=== PATIENT | male | born 1990 | race Caucasian/White ===

== ENCOUNTER 2017-04-10 15:30 | Emergency (ER) | payer BC, SELFPAY ==
[~2017-04-10] VITALS: Ht 172.7 cm; Wt 95.5 kg
[2017-04-10 15:31] VITALS: BP 138/85
[2017-04-10] MEDS ORDERED: ACET1TAB17 PO (15:47)
[2017-04-10] MEDS ORDERED: IBUP-1114 PO (15:47)
[2017-04-10] MEDS ORDERED: LIDOCAINE 2% MDV 20 ML VIAL SC ONE (16:30)
--- NOTE | 2017-04-10 16:48 | REP ---
RIGHT HAND, FOUR VIEWS: HISTORY: Trauma. There is a nondisplaced fracture of the 5th metacarpal. There is no dislocation. The joint spaces are normal in appearance. IMPRESSION:Nondisplaced fracture of the 5th metacarpal. Signed by Los Benson MD 04/10/2017 04:51 P
[2017-04-10] MEDS ORDERED: PERCOCET 5MG/325MG TAB PO ONE (17:30)
[2017-04-10] MEDS ORDERED: NORCOTAB PO (18:06)
--- NOTE | 2017-04-11 06:06 | REP ---
RIGHT HAND: CLINICAL: Postreduction. TECHNIQUE: Single oblique view of the right hand. COMPARISON: 04/10/2017 at 4 p.m. FINDINGS: A mildly angulated boxer's fracture of the fifth digit metacarpal bone with overlying soft tissue swelling is again appreciated essentially unchanged. IMPRESSION: Angulated boxer's fracture of the fifth metacarpal bone. Signed by Dc Barnett MD 04/12/2017 08:31 A
--- NOTE | 2017-04-11 06:08 | REP ---
RIGHT HAND: CLINICAL: Status post reduction. TECHNIQUE: AP and lateral views of the right hand. FINDINGS: Angulated boxer's fracture of the fifth metacarpal bone with overlying soft tissue swelling is again appreciated and essentially unchanged. The remainder of the examination appears to be within normal limits. IMPRESSION: Angulated boxer's fracture of the fifth metacarpal bone with overlying soft tissue swelling. Signed by Dc Barnett MD 04/12/2017 08:32 A
== END 2017-04-10 18:56 | disposition home or self-care (01) ==
LOC: M ED 15:30
DX: S62.346A Nondisplaced fracture of base of fifth metacarpal bone, right hand, initial encounter for closed fracture (principal); W22.09XA Striking against other stationary object, initial encounter; Y92.098 Other place in other non-institutional residence as the place of occurrence of the external cause; Y93.89 Activity, other specified; Y99.8 Other external cause status; Z88.0 Allergy status to penicillin

== ENCOUNTER → 2019-10-12 | Outpatient (REF) | payer BC ==
[~2019-10-12] MED LIST: ACET1TAB55 PO; HYDR-3715 PO; IBUP-1114 PO
[2019-10-12 14:15] LABS: ALBUMIN 4.3 GM/DL (3.2-5.2); ALT/SGPT 45 U/L (12-78); BILIRUBIN,TOTAL 0.7 MG/DL (0.2-1.0); BLOOD UREA NITROGEN 12 MG/DL (7-18); CALCIUM LEVEL 9.6 MG/DL (8.5-10.1); CARBON DIOXIDE LEVEL 30 MEQ/L (21-32); CHLORIDE LEVEL 108 MEQ/L (98-107); CHOLESTEROL LEVEL 193 MG/DL (<200); CHOLESTEROL RISK RATIO 3.385 (<5); CREATININE FOR GFR 0.86 MG/DL (0.70-1.30); FREE T4 1.01 NG/DL (0.76-1.46); GLOMERULAR FILTRATION RATE > 60.0 (>60); GLUCOSE, FASTING 102 MG/DL (70-100); HDL CHOLESTEROL 57 MG/DL (>40); LDL CHOLESTEROL 111 MG/DL (<100); NON-HDL-C 136 MG/DL; POTASSIUM SERUM 4.6 MEQ/L (3.5-5.1); SODIUM LEVEL 140 MEQ/L (136-145); THYROID STIMULATING HORMONE 0.634 uIU/ML (0.358-3.740); TOTAL PROTEIN 7.6 GM/DL (6.4-8.2); TRIGLYCERIDES LEVEL 123 MG/DL (<150)
[2019-10-12 14:18] LABS: TOTAL 25(OH) VITAMIN D 24.9 NG/ML (30.0-100.0)
[2019-10-12 14:29] LABS: HEMOGLOBIN A1c 5.4 %
== END ==
LOC: M SFHCPLAZ 10:56
PROVIDERS: ATTEND Physician Assistant
DX: Z00.00 Encounter for general adult medical examination without abnormal findings (principal); I10 Essential (primary) hypertension; Z13.220 Encounter for screening for lipoid disorders; Z13.29 Encounter for screening for other suspected endocrine disorder; Z13.1 Encounter for screening for diabetes mellitus

== ENCOUNTER → 2020-03-01 | Outpatient (REF) | payer BC | LOC: M LAB REF 14:01 | PROVIDERS: ATTEND Dermatology | DX: D49.2 Neoplasm of unspecified behavior of bone, soft tissue, and skin (principal) ==

== ENCOUNTER → 2021-01-04 | Outpatient (CLI) | payer BC ==
--- NOTE | 2021-01-04 11:15 | REP ---
INDICATION: ABD PAIN, UMBILICAL HERNIA. COMPARISON: None TECHNIQUE: Axial contrast-enhanced images from the lung bases to the pubic symphysis using oral and 100 cc Isovue 370 intravenous contrast material. Coronal and sagittal reformations obtained. This CT examination was performed using the following dose reduction techniques: Automated exposure control, adjustment of mA and/or kv according to the patient's size, and the use of iterative reconstruction technique. FINDINGS: Liver, spleen, pancreas, gallbladder, bilateral adrenal glands and right kidney are normal. Left kidney includes 2 mm nonobstructing calculus. The enteric system including stomach, small, and large bowel appears normal. No evidence for obstruction or acute inflammatory process. Normal terminal ileum and appendix are identified in the right lower quadrant. 4.5 cm fat containing periumbilical hernia noted without acute findings. Pelvis demonstrates normal bladder and age-appropriate prostate/seminal vesicles. No ascites. No free air. No intraperitoneal or retroperitoneal adenopathy. Abdominal aorta and vasculature appear normal. Musculoskeletal structures are intact and without acute osseous abnormality. IMPRESSION: No acute abdominopelvic pathology appreciated. 4.5 cm fat containing periumbilical hernia. 2 mm nonobstructing left renal calculus. <Electronically signed by Dc Barnett > 01/04/21 1111
== END ==
LOC: M PLAIMG 09:18
PROVIDERS: ATTEND Physician Assistant
DX: K42.9 Umbilical hernia without obstruction or gangrene (principal); R10.84 Generalized abdominal pain; N20.0 Calculus of kidney

== ENCOUNTER → 2021-02-15 | Outpatient (CLI) | payer BC ==
[~2021-02-15] MED LIST changes: +BUSP10TA PO; +HYDR50TA70 PO; +PROP80CA PO
== END ==
LOC: M LABSMTC 09:31
PROVIDERS: ATTEND Anesthesiology
DX: Z01.812 Encounter for preprocedural laboratory examination (principal); Z20.822 Contact with and (suspected) exposure to COVID-19

== ENCOUNTER 2021-02-20 07:30 | Day surgery (SDC) | payer BC ==
[~2021-02-20] VITALS: Ht 175.3 cm; Wt 111.1 kg
[~2021-02-20 07:30] MED LIST changes: +LIDOCAINE 1% MDV 20ML VIAL SQ PRN; +LR 1,000 ML IV ONE
--- OUTSIDE RECORDS SUMMARY | 2021-02-20 07:33 | CCD ---
Author Author [facility] Organization [facility] Address Unknown Phone Unavailable Care Team Providers Care Wire Stripper Name Role Phone Katie Lopez Unavailable PROBLEMS Type Condition ICD9-CM Code [id number] Code Onset Dates Condition S tatus W/U Status Risk SNOMED Code Notes Problem Bipolar II disorder F31.81 Active confirmed 99304122 Problem Obesity (BMI 35.0-39.9 without comorbidity) E66.9 Active confirmed 975745803 Problem Allergic rhinitis, unspecified seasonality, unspecifie d trigger J30.9 Active confirmed 26281791 Problem Essential hypertension I10 Active confirmed 06267557 Problem Locking of right knee M23.91 Active confirmed 28084198274071917 Problem 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 Active confirmed 555256344 Problem 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 Active confirmed 52231 01 Problem Onychomycosis B35.1 Active confirmed 641413 008 Problem Melanocytic nevi of left lower limb, including hip D22.72 Active confirmed 951204037358556 Problem Melanocytic nevi of right lower limb, including hip D22.71 Active confirmed 117543850 Problem Melanocytic nevi of trunk D22.5 Active confirmed 122604569 Problem Folliculitis L73.9 Active confirmed 9835961 6 Problem Hidradenitis suppurativa L73.2 Active confirmed 56791183 Problem History of squamous cell carcinoma Z85.89 Activ e confirmed 29886503046362 Problem History of nonmelanoma skin cancer Z85.828 Activ e confirmed 313474632 Problem Mixed obsessional thoughts and acts F42.2 Acti ve confirmed 88438514 Problem Melanocytic nevi of scalp and neck D22.4 Activ e confirmed 557334973 Problem Melanocytic nevi of face D22.30 Active confirmed 577155908 Problem Melanocytic nevus of left upper extremity D22.62 Active confirmed 772599004916044 Problem Melanocytic nevus of right upper extremity D22.61 Active confirmed 744186364 ALLERGIES No Known Allergies ENCOUNTERS from 1989 to 2021-01-06 Encounter Location Date Provider Diagnosis [facility] [address] [place] [address] [place] [address] Jan, Katie Lopez Periumbilical hernia K42.9 IMMUNIZATIONS No Information SOCIAL HISTORY Tobacco Use: Social History Observation Description Date Details (start date - stop date) Former Smoker Sex Assigned At : Social History Observation Description Sex Assigned At Unknown Education: Question Answer Notes Level of Education: College computer science and business Audit Question Answer Notes Total Score: 0 Interpretation: Alcohol Education Language: Question Answer Notes Languages spoken: Divehi Mosque: Question Answer Notes Mosque No latter-day beliefs that would impact health care. Sexual Hx: Question Answer Notes Had sex in the last 12 months (vaginal, oral, or anal)? Yes Have you ever had an STD? No Prevention Strategies discussed: Condoms with Women only Use protection? Yes How often? All of the time Drug and Alcohol Question Answer Notes Total Score: 0 Interpretation: No problems reported Tobacco Use: Question Answer Notes Are you a: former smoker quit 2013 REASON FOR REFERRAL from 1989 to 2021-01-06 Reason 30y/o male with 4.5cm perium bilical hernia that is reducable but causing pain Diagnosis 1 Periumbilical hernia (K42.9) Referral Organization [facility] Referring Provider First Name Katie Referring Provider Last Name John Referring Provider Specialty Family Medicine Referred Provider General Christ BROTHERS (YANIV baird) Referred Provider Specialty General Surgery Referral Priority Routine General Notes Senia Mercedes 01/06/2021 10:21:49 AM > referral faxed VITAL SIGNS No information MEDICATIONS Medication SIG (Take, Route, Frequency, Duration) Notes Start Da te End Date Status May Use defense cleanser externally daily as needed Active Propranolol HCl ER 80 MG take one capsule by mouth ev girish day Orally Once a day for 30 Days prn Active Fluticasone Propionate 50 MCG/ACT 1 spray in each nost ril Nasally Once a day for 30 day(s) Aug, Active Fexofenadine HCl 180 MG 1 tablet as needed Orally Once a day for 30 day(s) Aug, Active Clindamycin Phosphate 1 % 1 application to thighs, hector in, axilla Externally Once a day for 30 Days Active busPIRone HCl 10 MG 1 tablet Orally three times a day as needed for 30 Days Jul, Active hydrOXYzine HCl 50 MG 1-2 tablets as needed Orally before bed fo r 30 day(s) prn Aug, Active Griseofulvin Microsize 500 MG 1 tablet with a meal Ora lly Once a week x 3 months then re-evaluate for 84 days Act ashleigh PROCEDURES No Information RESULTS No Results REASON FOR VISIT CT scan results MEDICAL (GENERAL) HISTORY Type Description Date Medical History [facility], [facility] History S/P laceration of post neck after fall o n tree stem- 10/27/11 Medical History s/p Right mandibular fractur e s/p post ORIF mandibular fx in [facility] Medical History bells palsy (dx in [facility]) Medical History HNP L4, L5 Medical History 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 Surgical History Tonsillectomy and adenoidectomy Surgical History Right Mandibular ORIF Surgical History Multiple skull fractures 11/2012 Surgical History 6 teeth extractions Surgical History squamous cell removal bottom lip Hospitalization History broken jaw,puncture wound.[facility] in [place] 10/25-10/30/11 Hospitalization History Multiple skull fractures 11/2012 Goals Section No Information Health Concerns No Information MEDICAL EQUIPMENT No Information MENTAL STATUS No Information FUNCTIONAL STATUS No Information ASSESSMENTS Encounter Date Diagnosis Assessment Notes Treatment Notes Treatm ent Clinical Notes Jan, Periumbilical hernia (ICD-10 - K42.9) PLAN OF TREATMENT Referrals Referral Date Details 30y/o male with 4.5cm perium bilical hernia that is reducable but causing pain, General Surgey ([facility]) [facility] Next Appt Details Provider Name:Vidya Phan, 2020-01-25 03:30:00 PM, [address], , [place], [address], Insurance Providers Payer Name Payer Address Payer Phone Insured Name Patient Relati onship to Insured Coverage Start Date Coverage End Date BCBS [place] PPO [id number] [facility] [place] [id number] KEENAN PETERS self
--- OUTSIDE RECORDS SUMMARY | 2021-02-20 07:33 | CCD ---
Author Author [facility] Organization [facility] Address Unknown Phone Unavailable Care Team Providers Care Senior Staff Accountant Name Role Phone Katie Lopez Unavailable PROBLEMS Type Condition ICD9-CM Code [id number] Code Onset Dates Condition S tatus W/U Status Risk SNOMED Code Notes Problem Mixed obsessional thoughts and acts F42.2 Acti ve confirmed 78027288 Problem Bipolar II disorder F31.81 Active confirmed 94598414 Problem Essential hypertension I10 Active confirmed 93942589 Problem Obesity (BMI 35.0-39.9 without comorbidity) E66.9 Active confirmed 977282900 Problem 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 Active confirmed 941055295 Problem Allergic rhinitis, unspecified seasonality, unspecifie d trigger J30.9 Active confirmed 82253626 Problem 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 Active confirmed 42126 01 Problem Locking of right knee M23.91 Active confirmed 09493544863922169 Problem Melanocytic nevi of face D22.30 Active confirmed 968334258 Problem Melanocytic nevus of left upper extremity D22.62 Active confirmed 428166765244442 Problem Melanocytic nevus of right upper extremity D22.61 Active confirmed 338310603 Problem Melanocytic nevi of trunk D22.5 Active confirmed 905362870 Problem Hidradenitis suppurativa L73.2 Active confirmed 78605903 Problem Melanocytic nevi of scalp and neck D22.4 Activ e confirmed 217489937 Problem History of nonmelanoma skin cancer Z85.828 Activ e confirmed 300612731 Problem Folliculitis L73.9 Active confirmed 1584192 6 Problem Onychomycosis B35.1 Active confirmed 088862 008 Problem Melanocytic nevi of left lower limb, including hip D22.72 Active confirmed 843472772027342 Problem Melanocytic nevi of right lower limb, including hip D22.71 Active confirmed 332157845 ALLERGIES No Known Allergies ENCOUNTERS from 1989 to 2020-11-22 Encounter Location Date Provider Diagnosis [facility] [address] [facility] [phone] [place] [address] Oct, Katie John IMMUNIZATIONS No Information SOCIAL HISTORY Tobacco Use: Social History Observation Description Date Details (start date - stop date) Former Smoker Sex Assigned At : Social History Observation Description Sex Assigned At Unknown Education: Question Answer Notes Level of Education: College computer science and business Audit Question Answer Notes Total Score: 0 Interpretation: Alcohol Education Language: Question Answer Notes Languages spoken: Hong Konger Scientologist: Question Answer Notes Scientologist No nondenominational beliefs that would impact health care. Sexual [...] former smoker quit 2013 REASON FOR REFERRAL No Information VITAL SIGNS No information MEDICATIONS Medication SIG (Take, Route, Frequency, Duration) Notes Start Da te End Date Status May Use defense cleanser externally daily as needed Active Propranolol HCl ER 80 MG take one capsule by mouth ev girish day Orally Once a day for 30 Days Active Fluticasone Propionate 50 MCG/ACT 1 spray [...] Orally before bed fo r 30 day(s) Aug, Active Griseofulvin Microsize 500 MG 1 tablet with a meal Ora lly Once a week x 3 months then re-evaluate for 84 days Act ashleigh PROCEDURES No Information RESULTS No Results REASON FOR VISIT CAT scan appt, referral to gastro MEDICAL (GENERAL) HISTORY Type Description Date Medical History Bipolar with hypomania, [facility] Medical History S/P laceration of post neck after fall o n tree stem- 10/27/11 Medical History s/p Right mandibular fractur e s/p post ORIF mandibular fx in [facility] Medical History bells palsy (dx in [facility]) Medical History HNP L4, L5 Medical History 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 Surgical History Tonsillectomy and adenoidectomy Surgical History Right Mandibular ORIF Surgical History Multiple skull fractures 11/2012 Surgical History 6 teeth extractions Surgical History squamous cell removal bottom lip Hospitalization History broken jaw,[facility]uncture [facility] in [place] 10/25-10/30/11 Hospitalization History Multiple skull fractures 11/2012 Goals Section No Information Health Concerns No Information MEDICAL EQUIPMENT No Information MENTAL STATUS No Information FUNCTIONAL STATUS No Information ASSESSMENTS No Information PLAN OF TREATMENT Next Appt Details Provider Name:Katie Perry, 10:00:00 AM, [address] [place] [address], , [place], [address], Insurance Providers Payer Name Payer Address Payer Phone Insured Name Patient Relati onship to Insured Coverage Start Date Coverage End Date SHREE EDMOND PPO [phone] [facility] [employer] [place] [id number] KEENAN PETERS self
--- OUTSIDE RECORDS SUMMARY | 2021-02-20 07:33 | CCD ---
Author Author [facility] Organization [facility] Address Unknown Phone Unavailable Care Team Providers Care Computer Systems Security Administrator Name Role Phone Vidya Phan Unavailable PROBLEMS Type Condition ICD9-CM Code [id number] Code Onset Dates Condition S tatus W/U Status Risk SNOMED Code Notes Problem Bipolar II disorder F31.81 Active confirmed 38539415 Problem Obesity (BMI 35.0-39.9 without comorbidity) E66.9 Active confirmed 772534305 Problem Allergic rhinitis, unspecified seasonality, unspecifie d trigger J30.9 Active confirmed 76964727 Problem Essential hypertension I10 Active confirmed 22474170 Problem Locking of right knee M23.91 Active confirmed 00310068868922241 Problem 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 Active confirmed 439366153 Problem 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 Active confirmed 22098 01 Problem Onychomycosis B35.1 Active confirmed 995034 008 Problem Melanocytic nevi of left lower limb, including hip D22.72 Active confirmed 650854115014927 Problem Melanocytic nevi of right lower limb, including hip D22.71 Active confirmed 545252308 Problem Melanocytic nevi of trunk D22.5 Active confirmed 127200205 Problem Folliculitis L73.9 Active confirmed 1542276 6 Problem Hidradenitis suppurativa L73.2 Active confirmed 00535254 Problem History of squamous cell carcinoma Z85.89 Activ e confirmed 97927352633478 Problem History of nonmelanoma skin cancer Z85.828 Activ e confirmed 983321987 Problem Mixed obsessional thoughts and acts F42.2 Acti ve confirmed 42396021 Problem Melanocytic nevi of scalp and neck D22.4 Activ e confirmed 333891039 Problem Melanocytic nevi of face D22.30 Active confirmed 351047015 Problem Melanocytic nevus of left upper extremity D22.62 Active confirmed 960658130350913 Problem Melanocytic nevus of right upper extremity D22.61 Active confirmed 844146714 ALLERGIES No Known Allergies ENCOUNTERS from 1989 to 2021-02-15 Encounter Location Date Provider Diagnosis [place] [id number] [facility] [phone] [place] [address] Feb, [facility] IMMUNIZATIONS No Information SOCIAL HISTORY Tobacco Use: Social History Observation Description Date Details (start date - stop date) Former Smoker Sex Assigned At : Social History Observation Description Sex Assigned At Unknown Education: Question Answer Notes Level of Education: College computer science and business Audit Question Answer Notes Total Score: 0 Interpretation: Alcohol Education Language: Question Answer Notes Languages spoken: Albanian Buddhism: Question Answer Notes Buddhism No zoroastrianism beliefs that would impact health care. Sexual [...] Information RESULTS No Results REASON FOR VISIT Discharged MEDICAL (GENERAL) HISTORY Type Description Date Medical History Bipolar with hypomania, dxed [facility] Medical History S/P laceration of post neck after fall o n tree stem- 10/27/11 Medical History s/p Right mandibular fractur e s/p post ORIF mandibular fx in [facility] Medical History bells palsy (dx in [facility]) Medical History HNP L4, L5 Medical History 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 Surgical History Tonsillectomy and adenoidectomy Surgical History Right Mandibular ORIF Surgical History Multiple skull fractures 11/2012 Surgical History 6 teeth extractions Surgical History squamous cell removal bottom lip Hospitalization History broken jaw,puncture wound.[facility] [place] 10/25-10/30/11 Hospitalization History Multiple skull fractures 11/2012 Goals Section No Information Health Concerns No Information MEDICAL EQUIPMENT No Information MENTAL STATUS No Information FUNCTIONAL STATUS No Information ASSESSMENTS No Information PLAN OF TREATMENT No Information Insurance Providers Payer Name Payer Address Payer Phone Insured Name Patient Relati onship to Insured Coverage Start Date Coverage End Date BCBS DANIEL EDMOND PPO [phone] [facility] [id number] [facility] [place] [address] KEENAN PETERS self
--- OUTSIDE RECORDS SUMMARY | 2021-02-20 07:33 | CCD | Continuity of Care Document ---
Author Author Po BRAVO DO Organization Unknown Address [address], [address] [place] [address] Phone [phone] Care Team Providers Care Ice Cream Scooper Name Role Phone AUTM Unavailable Katie Lopez P.A.-C AUTM [phone] Problems Active Problems Provider Date Essential hypertension Marshall Bravo DO Onset: Social History Type Date Description Comments Sex Unknown ETOH Use Denies alcohol use Tobacco Use Start: Unknown End: Unknown Patient is a former smoker 1 ppd for 5 years quit 2015 Recreational Drug Use Current Drug User Marijuan a numerous times a day for anxiety and bipolar Allergies, Adverse Reactions, Alerts Description No Known Drug Allergies Medications Active Medications SIG Qnty Indications Ordering Provide r Date Propranolol HCL ER 80mg Caps ER 24 HR Take One Capsule By Mouth Every Day as Needed Unknown Hydroxyzine HCL 50mg Tablets Take Two Tablets By Mouth AT Bedtime as Needed Unknown Buspirone HCL 10mg Tablets Take One Tablet By Mouth Three Times A Day as Needed Unknown Immunizations Description No Information Available Vital Signs Date Vital Result Comment 01/12/2021 10:57am BP Systolic 132 mmHg BP Diastolic 86 mmHg Body Temperature 98.3 F Height 68 inches 5'8" Weight 250.38 lb BMI (Body Mass Index) 38.1 kg/m2 [place] Body Weight 154 lb Weight 113.570 kg BSA (Body Surface Area) 2.25 m2 Results Description No Information Available Procedures Description No Information Available Medical Devices Description No Information Available Encounters Description No Information Available Assessments Description No Information Available Plan of Treatment No Information Available Functional Status Description No Information Available Mental Status Description No Information Available Referrals Refer to Reason for Referral Status Appt Date Marshall Bravo D.O. PERIUMBILICAL HERNIA Created [address] [address] [phone]
--- OUTSIDE RECORDS SUMMARY | 2021-02-20 07:33 | CCD ---
Author Author [facility] Organization [facility] Address Unknown Phone Unavailable Care Team Providers Care Advertising Assistant Name Role Phone HIPOLITO A KOBE DO Unavailable Unavailable BRYDEN, A KOBE DO Unavailable Unavailable BRYDEN, A KOBE DO Unavailable Unavailable BRYDEN, A KOBE DO Unavailable Unavailable BRYDEN, A KOBE DO Unavailable Unavailable BRYDEN, A KOBE DO Unavailable Unavailable BRYDEN, A KOBE DO Unavailable Unavailable BRYDEN, A KOBE DO Unavailable Unavailable BRYDEN, A KOEB DO Unavailable Unavailable BRYDEN, A KOBE DO Unavailable Unavailable BRYDEN, A KOBE DO Unavailable Unavailable BRYDEN, A KOBE DO Unavailable Unavailable BRYDEN, A KOBE DO Unavailable Unavailable BRYDEN, A KOBE DO Unavailable Unavailable BRYDEN, A OKBE DO Unavailable Unavailable BRYDEN, A KOBE DO Unavailable Unavailable BRYDEN, A KOBE DO Unavailable Unavailable BRYDEN, A KOBE DO Unavailable Unavailable BRYDEN, A KOBE DO Unavailable Unavailable BRYDEN, A KOBE DO Unavailable Unavailable BRYDEN, A KOBE DO Unavailable Unavailable BRYDEN, A KOBE DO Unavailable Unavailable BRYDEN, A KOBE DO Unavailable Unavailable BRYDEN, A KOBE DO Unavailable Unavailable BRYDEN, A KOBE DO Unavailable Unavailable BRYDEN, A KOBE DO Unavailable Unavailable BRYDEN, A KOBE DO Unavailable Unavailable BRYDEN, A KOBE DO Unavailable Unavailable BRYDEN, A KOBE DO Unavailable Unavailable Re-disclosure Warning The records that you are about to access may contain information from federally-assisted alcohol or drug abuse programs. If such information is present, then the following federally mandated warning applies: This information has been disclosed to you from records protected by federal confidentiality rules (42 CFR part 2). The federal rules prohibit you from making any further disclosure of this information unless further disclosure is expressly permitted by the written consent of the person to whom it pertains or as otherwise permitted by 42 CFR part 2. A general authorization for the release of medical or other information is NOT sufficient for this purpose. The Federal rules restrict any use of the information to criminally investigate or prosecute any alcohol or drug abuse patient.The records that you are about to access may contain highly sensitive health information, the redisclosure of which is protected by Article 27-F of the [facility] Public Health law. If you continue you may have access to information: Regarding HIV / AIDS; Provided by facilities licensed or operated by the [facility] Office of Mental Health; or Provided by the [facility] Office for People With Developmental Disabilities. If such information is present, then the following [facility] mandated warning applies: This information has been disclosed to you from confidential records which are protected by state law. State law prohibits you from making any further disclosure of this information without the specific written consent of the person to whom it pertains, or as otherwise permitted by law. Any unauthorized further disclosure in violation of state law may result in a fine or shelter sentence or both. A general authorization for the release of medical or other information is NOT sufficient authorization for further disc losure. Family History Family Member Name Family Member Gender Family Member Status Date o f Status Description Data Source(s) Unknown Female Problem MEDENT ([facility]) Encounters Encounter Providers Location Date Indications Data Source(s ) Unknown [address] [facility] [address] 02/17/2021 12:00:00 AM EDT eCW1 ([facility] [place] [address] [facility] [address] 02/15/2021 12:00:00 AM EDT eCW1 ([facility]) [place] [address] [facility] [address] 02/08/2021 12:00:00 AM EDT eCW1 ([facility]) [place] [address] [facility] [address] 01/25/2021 12:00:00 AM EDT eCW1 ([facility]) Outpatient Attender: KOBE Grigsby/Christian/David/Av ndhailey 01/12/2021 10:40:00 AM EDT MEDENT ([facility] [place] [facility], ) [place] [address] [facility] [address] 01/06/2021 12:00:00 AM EDT eCW1 ([facility]) Unknown [address] [facility] [address] 11/01/2020 12:00:00 AM EDT eCW1 ([facility]) [place] [address] [facility] [address] 10/31/2020 12:00:00 AM EDT eCW1 ([facility]) Outpatient [address] [facility] [address] 10/28/2020 12:00:00 AM EDT eCW1 ([facility]) Unknown [address] [facility] [address] 09/26/2020 12:00:00 AM EDT eCW1 ([facility]) Unknown [address] [facility] [address] 08/02/2020 12:00:00 AM EDT eCW1 ([facility]) Outpatient [address] [facility] [address] 06/27/2020 12:00:00 AM EST eCW1 ([facility]) Unknown [address] [facility] [address] 06/08/2020 12:00:00 AM EST [facility]1 [facility] [place] [address] [facility] [address] 05/07/2020 12:00:00 AM EST [facility]CW1 ([facility]) [place] [address] [facility] [address] 04/07/2020 12:00:00 AM EST [facility]CW1 [facility] [place] [address] [facility] [address] 03/08/2020 12:00:00 AM EST eCW1 ([facility]) [place] [address] [facility] [address] 03/02/2020 12:00:00 AM EDT eCW1 ([facility]) [place]patient [address] [facility] [address] 03/01/2020 12:00:00 AM EDT eCW1 ([facility]) [place]patient [address] [facility] [address] 02/11/2020 12:00:00 AM EDT eCW1 ([facility]) Outpatient [address] [facility] [address] 02/11/2020 12:00:00 AM EDT eCW1 ([facility]) ([facility]) [place] [address] [facility] [address] 02/04/2020 12:00:00 AM EDT eCW1 ([facility]) Immunizations Vaccine Date Status Description Data Source(s) COVID-19 VACCINE Pfizer 08/05/2020 12:00:00 AM EDT completed [facility] Vaccine Series Complete: YESThis Data wa s Submitted to [facility] [employer] COVID-19 VACCINE Pfizer 07/15/2020 12:00:00 AM EST completed [facility] Vaccine Series Complete: NOThis Data was Submitted to [facility]. Medications Medication Brand Name Start Date Product Form Dose Route Admi nistrative Instructions Pharmacy Instructions Status Indications Reaction Description Data Source(s) Griseofulvin 500 MG Oral Tablet Griseofulvin Microsize 500 MG Griseofulvin Microsize 500 MG 06/27/2020 12:00:00 AM EST 1.0 {tablet_with_a_meal} active Griseofulvin Microsize 500 MG eC W1 ([facility]) Clindamycin 0.01 MG/MG Topical Gel Clindamycin Phospha te 1 % Clindamycin Phosphate 1 % 06/27/2020 12:00:00 AM EST acti ve Clindamycin Phosphate 1 % eCW1 ([facility]) Clindamycin 0.01 MG/MG Topical Gel Clindamycin Phospha te 1 % Clindamycin Phosphate 1 % 06/27/2020 12:00:00 AM EST acti ve Clindamycin Phosphate 1 % eCW1 ([facility]) 1 % 06/27/2020 12:00:00 AM EST gel 30 APPLY ONCE DAILY TO THIGHS, GROIN, AND AXILLA APPLY ONCE DAILY TO THIGHS, GROIN, AND AXILLA SOLD: 07/02/2020 [facility] Griseofulvin 500 MG Oral Tablet Griseofulvin Microsize 500 MG Griseofulvin Microsize 500 MG 06/27/2020 12:00:00 AM EST 1.0 {tablet_with_a_meal} active Griseofulvin Microsize 500 MG eC W1 ([facility]) 500 mg 06/27/2020 12:00:00 AM EST tablet 12 TAKE 1 TABLET BY MOUTH WITH A MEAL ONCE WEEKLY FOR 3 MONTHS THEN RE-EVALUATE TAKE 1 TABLET BY MOUTH WITH A MEAL ONCE WEEKLY FOR 3 MONTHS THEN RE-EVALUATE SOLD: 07/02/2020 [facility] buspirone hydrochloride 10 MG Oral Tablet BUSPIRONE HCL 05/10/2020 12:00:00 AM EST tablet 90 TAKE ONE TABLET BY MOUTH THR EE TIMES A DAY NEEDED TAKE ONE TABLET BY MOUTH THREE TIMES A DAY NEEDED SOLD: 05/11/2020 [facility] buspirone hydrochloride 10 MG Oral Tablet BUSPIRONE HCL 05/10/2020 12:00:00 AM EST tablet 90 TAKE ONE TABLET BY MOUTH THR EE TIMES A DAY NEEDED TAKE ONE TABLET BY MOUTH THREE TIMES A DAY NEEDED SOLD: 10/25/2020 [facility] buspirone hydrochloride 10 MG Oral Tablet BUSPIRONE HCL 05/10/2020 12:00:00 AM EST tablet 90 TAKE ONE TABLET BY MOUTH THR EE TIMES A DAY NEEDED TAKE ONE TABLET BY MOUTH THREE TIMES A DAY NEEDED SOLD: 06/22/2020 [facility] 50 mg 02/02/2020 12:00:00 AM EDT tablet 60 TAKE TWO TABLETS BY MOUTH AT BEDTIME NEEDED TAKE TWO TABLETS BY MOUTH AT BEDTIME NEEDED SOLD: 04/23/2020 [facility] 80 mg 02/02/2020 12:00:00 AM EDT capsule,extended releas e 24 hr 30 TAKE ONE CAPSULE BY MOUTH EVERY DAY TAKE ONE CAPSULE BY MOUTH EVERY DAY SOLD: 10/25/2020 [facility] 50 mg 02/02/2020 12:00:00 AM EDT tablet 60 TAKE TWO TABLETS BY MOUTH AT BEDTIME NEEDED TAKE TWO TABLETS BY MOUTH AT BEDTIME NEEDED SOLD: 02/04/2020 [facility] 50 mg 02/02/2020 12:00:00 AM EDT tablet 60 TAKE TWO TABLETS BY MOUTH AT BEDTIME NEEDED TAKE TWO TABLETS BY MOUTH AT BEDTIME NEEDED SOLD: 03/17/2020 [facility] 80 mg 02/02/2020 12:00:00 AM EDT capsule,extended releas e 24 hr 30 TAKE ONE CAPSULE BY MOUTH EVERY DAY TAKE ONE CAPSULE BY MOUTH EVERY DAY SOLD: 03/17/2020 [facility] 50 mg 02/02/2020 12:00:00 AM EDT tablet 60 TAKE TWO TABLETS BY MOUTH AT BEDTIME NEEDED TAKE TWO TABLETS BY MOUTH AT BEDTIME NEEDED SOLD: 10/25/2020 [facility] 80 mg 02/02/2020 12:00:00 AM EDT capsule,extended releas e 24 hr 30 TAKE ONE CAPSULE BY MOUTH EVERY DAY TAKE ONE CAPSULE BY MOUTH EVERY DAY SOLD: 04/23/2020 [facility] 50 mg 02/02/2020 12:00:00 AM EDT tablet 60 TAKE TWO TABLETS BY MOUTH AT BEDTIME NEEDED TAKE TWO TABLETS BY MOUTH AT BEDTIME NEEDED SOLD: 06/22/2020 [facility] 80 mg 02/02/2020 12:00:00 AM EDT capsule,extended releas e 24 hr 30 TAKE ONE CAPSULE BY MOUTH EVERY DAY TAKE ONE CAPSULE BY MOUTH EVERY DAY SOLD: 06/22/2020 [facility] 80 mg 02/02/2020 12:00:00 AM EDT capsule,extended releas e 24 hr 30 TAKE ONE CAPSULE BY MOUTH EVERY DAY TAKE ONE CAPSULE BY MOUTH EVERY DAY SOLD: 02/04/2020 [facility] buspirone hydrochloride 10 MG Oral Tablet BUSPIRONE HCL 11/03/2019 12:00:00 AM EDT tablet 60 TAKE ONE TABLET BY MOUTH TWI CE A DAY NEEDED TAKE ONE TABLET BY MOUTH TWICE A DAY NEEDED SOLD: 01/30/2020 [facility] buspirone hydrochloride 10 MG Oral Tablet BUSPIRONE HCL 11/03/2019 12:00:00 AM EDT tablet 60 TAKE ONE TABLET BY MOUTH TWI CE A DAY NEEDED TAKE ONE TABLET BY MOUTH TWICE A DAY NEEDED SOLD: 04/01/2020 [facility] buspirone hydrochloride 10 MG Oral Tablet BUSPIRONE HCL 11/03/2019 12:00:00 AM EDT tablet 60 TAKE ONE TABLET BY MOUTH TWI CE A DAY NEEDED TAKE ONE TABLET BY MOUTH TWICE A DAY NEEDED SOLD: 03/02/2020 [facility] buspirone hydrochloride 10 MG Oral Tablet BUSPIRONE HCL 11/03/2019 12:00:00 AM EDT tablet 60 TAKE ONE TABLET BY MOUTH TWI CE A DAY NEEDED TAKE ONE TABLET BY MOUTH TWICE A DAY NEEDED SOLD: 12/30/2019 [facility] Insurance Providers Payer name Policy type / Coverage type Policy ID Covered libertarian ID Covered libertarian's relationship to navarro Policy Navarro Plan Information D [employer] BCBS Dental S [id number] S [id number] [employer] MEDICAID [id number] Radha [id number] [place] 306/806 [id number] SP [id number] [place] PPO 302/[id number] SP [id number] [place] 302/307 [id number] SP [id number] [employer] BCBS P UNAVAILABLE S UNAV AILABLE ANSI-Commercial [id number] ANSI-Commercial [id number] ANSI-Commercial [id number] ANSI-Commercial [id number] ANSI-Commercial [id number] ANSI-Commercial [id number] [employer] BCYO P UNAVAILABLE S UNAV AILABLE D [employer] BC[employer] Dental S [id number] S [id number] O UNAVAILABLE UNAVAILA BLE SELF PAY ONLY [id number] SP [id number] BCBS [place] O [id number] P [id number] [place] O [id number] S [id number] UNAVAILABLE UNAVAILA BLE [id number] [facility] [id number] SP [id number] BCBS [facility] [id number] SP [id number] Problems, Conditions, and Diagnoses Code Display Name Description Problem Type Effective Dates Data Source(s) 86842407 Essential hypertension Essential hypertension Problem 01/12/2021 12:00:00 AM EDT BEBA ([facility], ) Z85.89 [id number] History of squamous cell carcinoma Prob blayne 12/26/2020 12:00:00 AM EDT eCW1 ([facility]) D22.61 [id number] Melanocytic nevus of right upper extremit y Problem 06/27/2020 12:00:00 AM EST eCW1 ([facility]) D22.62 [id number] Melanocytic nevus of left upper extrem ity Problem 06/27/2020 12:00:00 AM EST eCW1 ([facility]) D22.30 [id number] Melanocytic nevi of face Problem 06/27/2020 12:00:00 AM EST eCW1 ([facility]) D22.4 [id number] Melanocytic nevi of scalp and neck Proble 06/27/2020 12:00:00 AM EST eCW1 ([facility]) Z85.828 [id number] History of nonmelanoma skin cancer Proble 06/27/2020 12:00:00 AM EST eCW1 ([facility]) L73.2 [id number] Hidradenitis suppurativa Problem 06/27/2020 12:00:00 AM EST eCW1 ([facility]) L73.9 [id number] Folliculitis Problem 06/27/2020 12:00:00 AM EST eCW1 ([facility]) D22.5 [id number] Melanocytic nevi of trunk Problem 06/27/2020 12:00:00 AM EST eCW1 ([facility]) D22.71 [id number] Melanocytic nevi of right lower limb, inc luding hip Problem 06/27/2020 12:00:00 AM EST eCW1 ([facility]) D22.72 [id number] Melanocytic nevi of left lower l imb, including hip Problem 06/27/2020 12:00:00 AM EST eCW1 ([facility]) B35.1 [id number] Onychomycosis Problem 06/27/2020 12:00:00 AM EST eCW1 ([facility]) D18.01 [id number] Gupta angioma Problem 06/27/2020 12:00:00 A M EST eCW1 ([facility]) M23.91 [id number] Locking of right knee Problem 1 12:00:00 AM EDT eCW1 ([facility]) C44.02 [id number] 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 Problem 02/04/2020 12:00:00 AM EDT eCW1 ([facility]) Surgeries/Procedures Procedure Description Date Indications Data Source(s) OFFICE OUTPATIENT NEW 45 MINUTES 01/12/2021 12:00:00 A M EDT [facility]ENT ([facility] ) Suture Removal 03/08/2020 12:00:00 AM EST eCW1 ([facility]) Suture Removal 02/11/2020 12:00:00 AM EDT eCW1 ([facility]) FINE NEEDLE ASPIRATION W/O IMAGING GUIDANCE 02/04/2020 12:00:00 AM EDT eCW1 ([facility]) Unclassified drugs 02/04/2020 12:00:00 AM EDT eCW1 ([facility]) Results No Information Social History Code Duration Value Status Description Data Source(s ) Smoking 10/28/2020 12:00:00 AM EDT Former Smoker completed Former Smoker eCW1 ([facility]) Smoking 10/28/2020 12:00:00 AM EDT Former Smoker completed Former Smoker eCW1 ([facility]) Smoking 10/28/2020 12:00:00 AM EDT Former Smoker completed Former Smoker eCW1 ([facility]) Smoking 10/28/2020 12:00:00 AM EDT Former Smoker completed Former Smoker eCW1 ([facility]) Smoking 10/28/2020 12:00:00 AM EDT Former Smoker completed Former Smoker eCW1 ([facility]) Smoking 10/28/2020 12:00:00 AM EDT Former Smoker completed Former Smoker eCW1 ([facility]) Smoking 10/28/2020 12:00:00 AM EDT Former Smoker completed Former Smoker eCW1 ([facility]) Smoking 10/28/2020 12:00:00 AM EDT Former Smoker completed Former Smoker eCW1 ([facility]) Smoking 06/27/2020 12:00:00 AM EST Former Smoker completed Former Smoker eCW1 ([facility]) Smoking 06/27/2020 12:00:00 AM EST Former Smoker completed Former Smoker eCW1 ([facility]) Smoking 06/27/2020 12:00:00 AM EST Former Smoker completed Former Smoker eCW1 ([facility]) Smoking 03/08/2020 12:00:00 AM EST Former Smoker completed Former Smoker eCW1 ([facility]) Smoking 03/08/2020 12:00:00 AM EST Former Smoker completed Former Smoker eCW1 ([facility]) Smoking 03/08/2020 12:00:00 AM EST Former Smoker completed Former Smoker eCW1 ([facility]) Smoking 03/08/2020 12:00:00 AM EST Former Smoker completed Former Smoker eCW1 ([facility]) Smoking 03/08/2020 12:00:00 AM EST Former Smoker completed Former Smoker eCW1 ([facility]) Smoking 03/01/2020 12:00:00 AM EDT Former Smoker completed Former Smoker eCW1 ([facility]) Smoking 02/11/2020 12:00:00 AM EDT Former Smoker completed Former Smoker eCW1 ([facility]) Smoking 02/11/2020 12:00:00 AM EDT Former Smoker completed Former Smoker eCW1 ([facility]) Smoking 02/11/2020 12:00:00 AM EDT Former Smoker completed Former Smoker eCW1 ([facility]) Vital Signs ID Date Data Source UNK Name Value Range Interpretation Code Description Data Source(s) Body surface area Derived from formula 2.25 m2 2.25 m2 [facility] Systolic blood pressure 132 mm[Hg] 132 mm[Hg] M EDENT ([facility]) Diastolic blood pressure 86 mm[Hg] 86 mm[Hg] [facility] ([facility]) Body temperature 98.3 [degF] 98.3 [degF] [facility] ([facility]) Body height 68 [in_i] 68 [in_i] [facility] 5'8" Body weight 250.38 [lb_av] 250.38 [lb_av] MEDEN T ([facility]) Body mass index (BMI) [Ratio] 38.1 kg/m2 38.1 k g/m2 MEDENT ([facility]) [place] body weight 154 [lb_av] 154 [lb_av] MEDEN T ([facility]) Body weight 113.570 kg 113.570 kg MEDENT ([facility]) Systolic blood pressure 126 mm[Hg] 126 mm[Hg] e CW1 ([facility]) Diastolic blood pressure 84 mm[Hg] 84 mm[Hg] eCW1 ([facility]) Body weight 242.8 [lb_av] 242.8 [lb_av] eCW1 ([facility]) Body height 69 [in_i] 69 [in_i] eCW1 ([facility]) Body mass index (BMI) [Ratio] 35.85 kg/m2 35.85 kg/m2 W1 ([facility]) Heart rate 88 /min 88 /min eCW1 ([facility]) Respiratory rate 18 /min 18 /min eCW1 ([facility]) Body temperature 97.4 [degF] 97.4 [degF] eCW1 ( [facility]) Body weight 257.0 [lb_av] 257.0 [lb_av] eCW1 ([facility]) Body height 69 [in_i] 69 [in_i] eCW1 ([facility]) Body mass index (BMI) [Ratio] 37.95 kg/m2 37.95 kg/m2 eCW1 ([facility]) Systolic blood pressure 126 mm[Hg] 126 mm[Hg] e CW1 ([facility]) Diastolic blood pressure 80 mm[Hg] 80 mm[Hg] eCW1 ([facility]) Body weight 258.4 [lb_av] 258.4 [lb_av] eCW1 ([facility]) Body height 69 [in_i] 69 [in_i] eCW1 ([facility]) Body mass index (BMI) [Ratio] 38.15 kg/m2 38.15 kg/m2 eCW1 ([facility]) Systolic blood pressure 128 mm[Hg] 128 mm[Hg] e CW1 ([facility]) Diastolic blood pressure 78 mm[Hg] 78 mm[Hg] eCW1 ([facility]) Body weight 258.6 [lb_av] 258.6 [lb_av] eCW1 ([facility]) Body height 69 [in_i] 69 [in_i] eCW1 ([facility]) Body mass index (BMI) [Ratio] 38.18 kg/m2 38.18 kg/m2 eCW1 ([facility]) Heart rate 80 /min 80 /min eCW1 ([facility]) Respiratory rate 18 /min 18 /min eCW1 ([facility]) Body temperature 97.1 [degF] 97.1 [degF] eCW1 ( [facility]) Systolic blood pressure 128 mm[Hg] 128 mm[Hg] e CW1 ([facility]) Diastolic blood pressure 90 mm[Hg] 90 mm[Hg] eCW1 ([facility]) Body weight 255 [lb_av] 255 [lb_av] eCW1 ([facility]) Body height 69 [in_i] 69 [in_i] eCW1 ([facility]) Body mass index (BMI) [Ratio] 37.65 kg/m2 37.65 kg/m2 eCW1 ([facility]) Systolic blood pressure 128 mm[Hg] 128 mm[Hg] e CW1 ([facility]) Diastolic blood pressure 78 mm[Hg] 78 mm[Hg] eCW1 ([facility]) Patient Treatment Plan of Care Planned Activity Planned Date Details Description Data Source (s) Clindamycin 0.01 MG/MG Topical Gel 06/27/2020 12:00:00 AM EST eCW1 ([facility]) Griseofulvin 500 MG Oral Tablet 06/27/2020 12:00:00 AM EST eCW1 ([facility]) Clindamycin 0.01 MG/MG Topical Gel 06/27/2020 12:00:00 AM EST eCW1 ([facility]) Griseofulvin 500 MG Oral Tablet 06/27/2020 12:00:00 AM EST eCW1 ([facility])
--- OUTSIDE RECORDS SUMMARY | 2021-02-20 07:33 | CCD ---
Author Author [facility] Organization [facility] Address Unknown Phone Unavailable Care Team Providers Care Motor Inspection Mechanic Name Role Phone Katie Lopez Unavailable PROBLEMS Type Condition ICD9-CM Code [id number] Code Onset Dates Condition S tatus W/U Status Risk SNOMED Code Notes Problem Mixed obsessional thoughts and acts F42.2 Acti ve confirmed 12154626 Problem Bipolar II disorder F31.81 Active confirmed 66439874 Problem Essential hypertension I10 Active confirmed 74288792 Problem Obesity (BMI 35.0-39.9 without comorbidity) E66.9 Active confirmed 691500624 Problem 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 Active confirmed 379268172 Problem Allergic rhinitis, unspecified seasonality, unspecifie d trigger J30.9 Active confirmed 43608622 Problem 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 Active confirmed 25889 01 Problem Locking of right knee M23.91 Active confirmed 43181564835120882 Problem Melanocytic nevi of face D22.30 Active confirmed 259584360 Problem Melanocytic nevus of left upper extremity D22.62 Active confirmed 699899745877168 Problem Melanocytic nevus of right upper extremity D22.61 Active confirmed 271207315 Problem Melanocytic nevi of trunk D22.5 Active confirmed 334843217 Problem Hidradenitis suppurativa L73.2 Active confirmed 20156915 Problem Melanocytic nevi of scalp and neck D22.4 Activ e confirmed 661493962 Problem History of nonmelanoma skin cancer Z85.828 Activ e confirmed 839134886 Problem Folliculitis L73.9 Active confirmed 4058585 6 Problem Onychomycosis B35.1 Active confirmed 248484 008 Problem Melanocytic nevi of left lower limb, including hip D22.72 Active confirmed 419516034774614 Problem Melanocytic nevi of right lower limb, including hip D22.71 Active confirmed 442171099 ALLERGIES No Known Allergies ENCOUNTERS from 1989 to 2020-11-21 Encounter Location Date Provider Diagnosis [place] [id number] [facility] [phone] [place] [address] Oct, Katie John Umbilical hernia without obs truction and without gangrene K42.9 ; Diffuse abdominal pain R10.84 ; Nausea and vomiting in adult R11.2 ; Abdominal cramping R10.9 and Alternating constipation and diarrhea R19.8 IMMUNIZATIONS No Information SOCIAL HISTORY Tobacco Use: Social History Observation Description Date Details (start date - stop date) Former Smoker Sex Assigned At : Social History Observation Description Sex Assigned At Unknown Education: Question Answer Notes Level of Education: College computer science and business Audit Question Answer Notes Total Score: 0 Interpretation: Alcohol Education Language: Question Answer Notes Languages spoken: Sami Holiness: Question Answer Notes Holiness No buddhism beliefs that would impact health care. Sexual [...] REASON FOR REFERRAL No Information VITAL SIGNS Weight 242.8 lbs Oct, Height 69 in Oct, BMI 35.85 kg/m2 Oct, Heart Rate 88 /min Oct, Respiratory Rate 18 /min Oct, Temperature 97.4 degrees Fahrenheit Oct, Oximetry 99 Oct, Blood pressure systolic 126 mm Hg Oct, Blood pressure diastolic 84 mm Hg Oct, MEDICATIONS Medication SIG (Take, Route, Frequency, Duration) [...] Information RESULTS No Results REASON FOR VISIT hernia/ referral? MEDICAL (GENERAL) HISTORY Type Description Date Medical History [facility], [facility] Medical History S/P laceration of post neck after fall o n tree stem- 10/27/11 Medical History s/p Right mandibular fractur e s/p post ORIF mandibular fx in 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 Surgical History Tonsillectomy and adenoidectomy Surgical History Right Mandibular ORIF Surgical History Multiple skull fractures 11/2012 Surgical History 6 teeth extractions Surgical History squamous cell removal bottom lip Hospitalization History broken jaw,puncture wound.[facility] in [place] 10/25-10/30/11 Hospitalization History Multiple skull fractures 11/2012 Goals Section No Information Health Concerns No Information MEDICAL EQUIPMENT No Information MENTAL STATUS No Information FUNCTIONAL STATUS No Information ASSESSMENTS Encounter Date Diagnosis Assessment Notes Treatment Notes Treatm ent Clinical Notes Oct, Umbilical hernia without obs truction and without gangrene (ICD-10 - K42.9) will get CT abd and pelvis to look at umbilical hernia Oct, Diffuse abdominal pain (ICD-10 - R10.84) CT abdomen and pelvis ordered for hernia but to also look for any cause of the diffuse cramping he feels Oct, Nausea and vomiting in adult (ICD-10 - R11.2) liekly due to marijuana use, I suggested that patient cut back use or quit Oct, Abdominal cramping (ICD-10 - R10.9) will refer to GI specialist per patient request Oct, Alternating constipation and diarrhea (ICD-10 - R19.8) as above Oct, Other Total time spen t with the patient on the day of the encounter: 25 minutes PLAN OF TREATMENT Treatment Notes Assessment Notes Clinical Notes Umbilical hernia without obstruction and without gangrene will get CT abd and pelvis to look at umbilical hernia Diffuse abdominal pain CT abdomen and pe lvis ordered for hernia but to also look for any cause of the diffuse cramping he feels Nausea and vomiting in adult liekly due to marijuana use, I suggested that patient cut back use or quit Abdominal cramping will refer to GI spe cialist per patient request Alternating constipation and diarrhea as above Future Test Test Name Order Date CT ABD/PEL w/IV & Oral Contrast [id number] Next Appt Details 3 Months Reason: Provider Name:Katie Perry, 10:00:00 AM, [address] [place] [address], , [place], [address], Insurance Providers Payer Name Payer Address Payer Phone Insured Name Patient Relati onship to Insured Coverage Start Date Coverage End Date BCBS [place] PPO [phone] [facility] [employer] [place] [address] KEENAN PETERS self
--- OUTSIDE RECORDS SUMMARY | 2021-02-20 07:33 | CCD ---
Author Author [facility] Organization [facility] Address Unknown Phone Unavailable Care Team Providers Care Director Of Digital Technology Name Role Phone Vidya Phan Unavailable PROBLEMS Type Condition ICD9-CM Code [id number] Code Onset Dates Condition S tatus W/U Status Risk SNOMED Code Notes Problem Bipolar II disorder F31.81 Active confirmed 46728170 Problem Obesity (BMI 35.0-39.9 without comorbidity) E66.9 Active confirmed 453338067 Problem Allergic rhinitis, unspecified seasonality, unspecifie d trigger J30.9 Active confirmed 31703293 Problem Essential hypertension I10 Active confirmed 68076034 Problem Locking of right knee M23.91 Active confirmed 18527999827636217 Problem 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 Active confirmed 257591106 Problem 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 Active confirmed 54883 01 Problem Onychomycosis B35.1 Active confirmed 845232 008 Problem Melanocytic nevi of left lower limb, including hip D22.72 Active confirmed 152178177027479 Problem Melanocytic nevi of right lower limb, including hip D22.71 Active confirmed 851500868 Problem Melanocytic nevi of trunk D22.5 Active confirmed 258001889 Problem Folliculitis L73.9 Active confirmed 0007185 6 Problem Hidradenitis suppurativa L73.2 Active confirmed 39197848 Problem History of squamous cell carcinoma Z85.89 Activ e confirmed 58805882956725 Problem History of nonmelanoma skin cancer Z85.828 Activ e confirmed 682669470 Problem Mixed obsessional thoughts and acts F42.2 Acti ve confirmed 61487183 Problem Melanocytic nevi of scalp and neck D22.4 Activ e confirmed 912072459 Problem Melanocytic nevi of face D22.30 Active confirmed 338650037 Problem Melanocytic nevus of left upper extremity D22.62 Active confirmed 479023453270213 Problem Melanocytic nevus of right upper extremity D22.61 Active confirmed 777243453 ALLERGIES No Known Allergies ENCOUNTERS from 1989 to 2021-02-08 Encounter Location Date Provider Diagnosis [place] [address] [facility] [phone] [place] [address] Feb, [facility] IMMUNIZATIONS No Information SOCIAL HISTORY Tobacco Use: Social History Observation Description Date Details (start date - stop date) Former Smoker Sex Assigned At : Social History Observation Description Sex Assigned At Unknown Education: Question Answer Notes Level of Education: College computer science and business Audit Question Answer Notes Total Score: 0 Interpretation: Alcohol Education Language: Question Answer Notes Languages spoken: Armenian Baptism: Question Answer Notes Baptism No samaritan beliefs that would impact health care. Sexual [...] Information RESULTS No Results REASON FOR VISIT Admin Review MEDICAL (GENERAL) HISTORY Type Description Date Medical History Bipolar with hypomania, [facility]ed [facility] Medical History S/P laceration of post neck after fall o n tree stem- 10/27/11 Medical History s/p Right mandibular fractur e s/p post ORIF mandibular fx in [facility] Medical History bells palsy (dx in [email or web address] Medical History HNP L4, L5 Medical History 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 Surgical History Tonsillectomy and adenoidectomy Surgical History Right Mandibular ORIF Surgical History Multiple skull fractures 11/2012 Surgical History 6 teeth extractions Surgical History squamous cell removal bottom lip Hospitalization History broken jaw,[facility]uncture [facility] in [place] 10/25-10/30/11 Hospitalization History Multiple skull fractures 11/2012 Goals Section No Information Health Concerns No Information MEDICAL EQUIPMENT No Information MENTAL STATUS No Information FUNCTIONAL STATUS No Information ASSESSMENTS No Information PLAN OF TREATMENT No Information Insurance Providers Payer Name Payer Address Payer Phone Insured Name Patient Relati onship to Insured Coverage Start Date Coverage End Date BCBS DANIEL EDMOND PPO [id number] [facility] [place] [place] [place] [id number] KEENAN PETERS self
--- OUTSIDE RECORDS SUMMARY | 2021-02-20 07:33 | CCD | Continuity of Care Document ---
Author Author Po BRAVO DO Organization Unknown Address [address] [facility], [address] [place] [address] Phone [phone] Care Team Providers Care Cage Clerk Name Role Phone AUTM Unavailable Katie Lopez P.A.-C AUTM [phone] Problems Active Problems Provider Date Essential hypertension [...] lb BMI (Body Mass Index) 38.1 kg/m2 [place] Body Weight 154 lb Weight 113.570 kg BSA (Body Surface Area) 2.25 m2 Results Description No Information Available Procedures Date Code Description Status 01/12/2021 73784 Office/Outpatient New Moderate M DM 45-59 Minutes Completed Medical Devices Description No Information Available Encounters Type Date Location Provider Dx Diagnosis Office Visit 01/12/2021 10:40a [facility] Marshall Bravo DO K42.0 Umbilical hernia with obstruction, witho ut gangrene Assessments Date Code Description Provider 01/12/2021 K42.0 Umbilical hernia with obstructio n, without gangrene Marshall Brvao DO Plan of Treatment Future Appointment(s):* 03/06/2021 11:30 am - LITTLE Stubbs at [facility] * 02/20/2021 2:30 pm - Marshall Bravo DO at [facility] 01/12/2021 - Marshall Bravo DO* K42.0 Umbilical hernia with obstruction, without gangrene* Comments:* 30 y/o male presents with an incarcerated umbilical hernia. Recommendation at this time is to proceed with robotic assisted repair possible open. The risks and benefits of the procedure were discussed in detail. The risks include, but are not limited to bleeding, infection, need for open surgery, and possibility of recurrence. He understands the risks and elects to proceed with surgery. Functional Status Description No Information Available Mental Status Description No Information Available Referrals Refer to Reason for Referral Status Appt Date Marshall Bravo D.O. PERIUMBILICAL HERNIA Created [address] [address] [phone]
--- OUTSIDE RECORDS SUMMARY | 2021-02-20 07:33 | CCD ---
Author Author [facility] Organization [facility] Address Unknown Phone Unavailable Care Team Providers Care Mercantile Agent Name Role Phone Vidya Phan Unavailable PROBLEMS Type Condition ICD9-CM Code [id number] Code Onset Dates Condition S tatus W/U Status Risk SNOMED Code Notes Problem Bipolar II disorder F31.81 Active confirmed 10123892 Problem Obesity (BMI 35.0-39.9 without comorbidity) E66.9 Active confirmed 940241652 Problem Allergic rhinitis, unspecified seasonality, unspecifie d trigger J30.9 Active confirmed 08480945 Problem Essential hypertension I10 Active confirmed 96137675 Problem Locking of right knee M23.91 Active confirmed 32053900669684605 Problem 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 Active confirmed 269039233 Problem 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 Active confirmed 08740 01 Problem Onychomycosis B35.1 Active confirmed 982298 008 Problem Melanocytic nevi of left lower limb, including hip D22.72 Active confirmed 425683004129657 Problem Melanocytic nevi of right lower limb, including hip D22.71 Active confirmed 964499580 Problem Melanocytic nevi of trunk D22.5 Active confirmed 509720229 Problem Folliculitis L73.9 Active confirmed 9126781 6 Problem Hidradenitis suppurativa L73.2 Active confirmed 73505335 Problem History of squamous cell carcinoma Z85.89 Activ e confirmed 73049757799162 Problem History of nonmelanoma skin cancer Z85.828 Activ e confirmed 129222602 Problem Mixed obsessional thoughts and acts F42.2 Acti ve confirmed 53620165 Problem Melanocytic nevi of scalp and neck D22.4 Activ e confirmed 801853758 Problem Melanocytic nevi of face D22.30 Active confirmed 766598352 Problem Melanocytic nevus of left upper extremity D22.62 Active confirmed 157714821483328 Problem Melanocytic nevus of right upper extremity D22.61 Active confirmed 410855355 ALLERGIES No Known Allergies ENCOUNTERS from 1989 to 2021-02-15 Encounter Location Date Provider Diagnosis [place] [address] [facility] [phone] [place] [address] Jan, [facility] IMMUNIZATIONS No Information SOCIAL HISTORY Tobacco Use: Social History Observation Description Date Details (start date - stop date) Former Smoker Sex Assigned At : Social History Observation Description Sex Assigned At Unknown Education: Question Answer Notes Level of Education: College computer science and business Audit Question Answer Notes Total Score: 0 Interpretation: Alcohol Education Language: Question Answer Notes Languages spoken: Bulgarian Christian: Question Answer Notes Christian No spiritism beliefs that would impact health care. Sexual [...] Information RESULTS No Results REASON FOR VISIT no show discharge MEDICAL (GENERAL) HISTORY Type Description Date Medical History Bipolar with hypomania, dxed in [facility] Medical History S/P laceration of post neck after fall o n tree stem- 10/27/11 Medical History s/p Right mandibular fractur e s/p post ORIF mandibular fx in [facility] Medical History bells palsy (dx in [facility]) Medical History HNP L4, L5 Medical History 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 Surgical History Tonsillectomy and adenoidectomy Surgical History Right Mandibular ORIF Surgical History Multiple skull fractures 11/2012 Surgical History 6 teeth extractions Surgical History squamous cell removal bottom lip Hospitalization History broken jaw,[facility] in [place] 10/25-10/30/11 Hospitalization History Multiple skull fractures 11/2012 Goals Section No Information Health Concerns No Information MEDICAL EQUIPMENT No Information MENTAL STATUS No Information FUNCTIONAL STATUS No Information ASSESSMENTS No Information PLAN OF TREATMENT No Information Insurance Providers Payer Name Payer Address Payer Phone Insured Name Patient Relati onship to Insured Coverage Start Date Coverage End Date BCED[place]IN [place] PPO [phone] [facility] [employer] [place] FRANCIS [facility] [[email or web address]][place] [address] KEENAN PETERS self
--- OUTSIDE RECORDS SUMMARY | 2021-02-20 07:33 | CCD ---
Author Author [facility] Organization [facility] Address Unknown Phone Unavailable Care Team Providers Care Medical Office Technician Name Role Phone Vidya Phan Unavailable PROBLEMS Type Condition ICD9-CM Code [id number] Code Onset Dates Condition S tatus W/U Status Risk SNOMED Code Notes Problem Bipolar II disorder F31.81 Active confirmed 24652279 Problem Obesity (BMI 35.0-39.9 without comorbidity) E66.9 Active confirmed 828899088 Problem Allergic rhinitis, unspecified seasonality, unspecifie d trigger J30.9 Active confirmed 23191984 Problem Essential hypertension I10 Active confirmed 17614955 Problem Locking of right knee M23.91 Active confirmed 70713346599427064 Problem 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 Active confirmed 260277950 Problem 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 Active confirmed 23002 01 Problem Onychomycosis B35.1 Active confirmed 733280 008 Problem Melanocytic nevi of left lower limb, including hip D22.72 Active confirmed 723413608245997 Problem Melanocytic nevi of right lower limb, including hip D22.71 Active confirmed 234085172 Problem Melanocytic nevi of trunk D22.5 Active confirmed 267965704 Problem Folliculitis L73.9 Active confirmed 3822362 6 Problem Hidradenitis suppurativa L73.2 Active confirmed 95679319 Problem History of squamous cell carcinoma Z85.89 Activ e confirmed 61477049395547 Problem History of nonmelanoma skin cancer Z85.828 Activ e confirmed 253193348 Problem Mixed obsessional thoughts and acts F42.2 Acti ve confirmed 57709205 Problem Melanocytic nevi of scalp and neck D22.4 Activ e confirmed 532315426 Problem Melanocytic nevi of face D22.30 Active confirmed 614734644 Problem Melanocytic nevus of left upper extremity D22.62 Active confirmed 552873528302356 Problem Melanocytic nevus of right upper extremity D22.61 Active confirmed 286608139 ALLERGIES No Known Allergies ENCOUNTERS from 1989 to 2021-02-17 Encounter Location Date Provider Diagnosis [place] [id number] [facility] [phone] [place] [address] Feb, [facility] IMMUNIZATIONS No Information SOCIAL HISTORY Tobacco Use: Social History Observation Description Date Details (start date - stop date) Former Smoker Sex Assigned At : Social History Observation Description Sex Assigned At Unknown Education: Question Answer Notes Level of Education: College computer science and business Audit Question Answer Notes Total Score: 0 Interpretation: Alcohol Education Language: Question Answer Notes Languages spoken: Serbian Islam: Question Answer Notes Islam No lutheran beliefs that would impact health care. Sexual [...] Information RESULTS No Results REASON FOR VISIT Missing Paperwork MEDICAL (GENERAL) HISTORY Type Description Date Medical History Bipolar with hypomania, dxed [place] [place] Medical History S/P laceration of post neck after fall o n tree stem- 10/27/11 Medical History s/p Right mandibular fractur e s/p post ORIF mandibular fx in [facility] Medical History bells palsy (dx in [facility]) Medical History HNP L4, L5 Medical History 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 Surgical History Tonsillectomy and adenoidectomy Surgical History Right Mandibular ORIF Surgical History Multiple skull fractures 11/2012 Surgical History 6 teeth extractions Surgical History squamous cell removal bottom lip Hospitalization History broken jaw,puncture wound.[facility] in [place] 10/25-10/30/11 Hospitalization History Multiple skull fractures 11/2012 Goals Section No Information Health Concerns No Information MEDICAL EQUIPMENT No Information MENTAL STATUS No Information FUNCTIONAL STATUS No Information ASSESSMENTS No Information PLAN OF TREATMENT No Information Insurance Providers Payer Name Payer Address Payer Phone Insured Name Patient Relati onship to Insured Coverage Start Date Coverage End Date BCBS DANIEL EDMOND PPO [phone] [facility] [employer] [place] [facility] [place] [address] KEENAN PETERS self
[2021-02-20] MEDS ORDERED: SUGAMMADEX SODIUM 500 MG/5 ML VIAL (BRIDION) As Ordered ONE ×2 (08:23→09:59)
[2021-02-20] MEDS ORDERED: KETOROLAC 60MG 2ML VIAL As Ordered ONE (08:23)
[2021-02-20] MEDS ORDERED: ceFAZolin SOD 2 GM in IV 1 EA IV ONE (08:25)
[2021-02-20] MEDS ORDERED: propofoL 200 MG/20 ML VIAL As Ordered ONE ×3 (08:28→09:56)
[2021-02-20] MEDS ORDERED: LIDOCAINE 2% 100MG/5ML SDV (FOR ANES.) As Ordered ONE (08:34)
[2021-02-20] MEDS ORDERED: ROCURONIUM BROMIDE 50 MG/5 ML VIAL As Ordered ONE (08:35)
[2021-02-20] MEDS ORDERED: ONDANSETRON 4MG/2ML VIAL As Ordered ONE (08:35)
[2021-02-20] MEDS ORDERED: MIDAZOLAM INJ 2MG/2ML VIAL (J2250 PER 1MG) As Ordered ONE (08:35)
[2021-02-20] MEDS ORDERED: fentaNYL 100 MCG/2 ML INJECTION (J3010) As Ordered ONE ×3 (08:35→10:15)
[2021-02-20] MEDS ORDERED: dexameTHASONE 4 MG/ML 1ML VIAL (J1100 PER 1MG) As Ordered ONE (08:35)
[2021-02-20] MEDS ORDERED: BUPIVACAINE/EPIN 0.25% 30 ML VIAL As Ordered ONE (08:53)
[2021-02-20] MEDS ORDERED: ACETAMINOPHEN 1000MG 100ML IV BTL (OFIRMEV) (J0131 PER 10MG) As Ordered ONE (09:57)
[2021-02-20] MEDS ORDERED: NORCO, ANEXSIA 5/325MG TABLET (HYDROcodone/ACETAMINOPHEN) PO PRN (10:40)
[2021-02-20] MEDS ORDERED: LR 1,000 ML IV SCH (10:40)
[2021-02-20] MEDS ORDERED: ONDANSETRON 4MG/2ML VIAL IV PRN (10:40)
[2021-02-20] MEDS: fentaNYL 100 MCG/2 ML INJECTION (J3010) IV PRN ×2 (10:44→10:52)
[2021-02-20] MEDS: oxyCODONE 5MG TAB PO PRN ×2 (10:49→11:37)
[2021-02-20 12:25] VITALS: BP 132/80
--- NOTE | 2021-02-20 13:07 | RO ---
OPERATIVE NOTE DATE OF OPERATION: 02/20/2021 PREOPERATIVE DIAGNOSIS: Incarcerated umbilical hernia. POSTOPERATIVE DIAGNOSIS: Incarcerated umbilical hernia. PROCEDURE: Robotic repair of incarcerated umbilical hernia. SURGEON: Marshall Bravo DO PUBLIC HEALTH TEACHER: Nanette Lin ANESTHESIA: General. EBL: 5. COMPLICATIONS: None. INDICATIONS FOR PROCEDURE: The patient is a 30-year-old male who presents with a large umbilical hernia. Recommendation was to proceed with robotic repair. Risks and benefits of the procedure not limited to but including bleeding, infection, hernia recurrence, hernia formation, damage to surrounding structures, need for further surgery was discussed in detail with the patient, informed consent was obtained, the procedure was planned. The patient elected preoperatively that he did not want any mesh placed. He understands that there is a higher risk of recurrence without using the mesh but he is accepting that risk. DESCRIPTION OF PROCEDURE: The patient was brought to operating room 7. After sufficient sedation the abdomen was sterilely prepped and draped. Time out was done to confirm proper patient, proper procedure. Following that an 8 mm incision was made in left upper quadrant, Veress needle was inserted and abdomen was insufflated to 15 mmHg. Veress needle was removed and 8 mm Optiview port was used to gain access to the abdomen. Once the abdomen was entered two more ports were placed, one subxiphoid left of the midline and one in the right upper quadrant. The robot was docked to the ports. From the console horizontal incision was made into the preperitoneum superior to the umbilicus. Preperitoneal space was then dissected free heading inferiorly surrounding the hernia sac. The hernia sac and incarcerated contents were completely dissected free and reduced out of the defect. Once that was all completed and the defect was completely freed up, the fascia was closed with #0 Stratafix suture. Once that was completed the peritoneum was closed over top of this with 2-0 V-Loc. The patient tolerated the procedure well. The abdomen was desufflated. Skin incisions were closed with 4-0 Vicryl subcuticular sutures. The abdomen was cleaned and dried. Steri-Strips, 4 x 4s and tape were applied. This ended the procedure.
== END 2021-02-20 12:30 | disposition home or self-care (01) ==
LOC: M SDC 07:30
PROVIDERS: ATTEND Surgery
DX: K42.0 Umbilical hernia with obstruction, without gangrene (principal); I10 Essential (primary) hypertension; F43.10 Post-traumatic stress disorder, unspecified; F41.9 Anxiety disorder, unspecified; F32.9 Major depressive disorder, single episode, unspecified; Z79.899 Other long term (current) drug therapy; F12.10 Cannabis abuse, uncomplicated
CPT/HCPCS: 49653; J0131; J0690; J1100; J1885; J2250; J2405; J3010; S2900

== ENCOUNTER 2024-01-06 16:48 | Emergency (ER) | payer BC, SELFPAY ==
[~2024-01-06] VITALS: Ht 172.7 cm; Wt 99.5 kg
[~2024-01-06 16:48] MED LIST changes: -LIDOCAINE 1% MDV 20ML VIAL SQ PRN; -LR 1,000 ML IV ONE
[2024-01-06] MEDS: ALPRAZolam 0.5 MG TAB PO ONE (17:02)
[2024-01-06] MEDS: ACETAMINOPHEN 500 MG TAB PO ONE (17:03)
[2024-01-06] MEDS: LIDOCAINE 1% MDV 20ML VIAL SC ONE (19:10)
[2024-01-06] MEDS ORDERED: CEPH500C PO (19:12)
[2024-01-06] MEDS: BOOSTRIX VACCINE (TETANUS/DIPHTH/ACEL. PERTUSSIS) 0.5ML SYR IM ONE (19:14)
[2024-01-06 19:25] VITALS: BP 161/100; TEMP 98.1; O2SAT 97
== END 2024-01-06 19:27 | disposition home or self-care (01) ==
LOC: M ED 16:48
DX: S62.661B Nondisplaced fracture of distal phalanx of left index finger, initial encounter for open fracture (principal); S61.213A Laceration without foreign body of left middle finger without damage to nail, initial encounter; S61.215A Laceration without foreign body of left ring finger without damage to nail, initial encounter; W29.3XXA Contact with powered garden and outdoor hand tools and machinery, initial encounter; Y92.009 Unspecified place in unspecified non-institutional (private) residence as the place of occurrence of the external cause; Y93.89 Activity, other specified; Y99.9 Unspecified external cause status; F41.9 Anxiety disorder, unspecified; F31.9 Bipolar disorder, unspecified; Z79.899 Other long term (current) drug therapy

== ENCOUNTER → 2024-01-15 | Outpatient (CLI) | payer BC, SELFPAY ==
[~2024-01-15] MED LIST changes: +CEPH500C PO
== END ==
LOC: M SOG 07:52
PROVIDERS: ATTEND Physician Assistant
DX: S62.661B Nondisplaced fracture of distal phalanx of left index finger, initial encounter for open fracture (principal); X58.XXXA Exposure to other specified factors, initial encounter; Y92.9 Unspecified place or not applicable; Y93.9 Activity, unspecified; Y99.9 Unspecified external cause status

== ENCOUNTER → 2024-02-12 | Outpatient (CLI) | payer BC | LOC: M SOG 09:53 | PROVIDERS: ATTEND Physician Assistant | DX: S62.661B Nondisplaced fracture of distal phalanx of left index finger, initial encounter for open fracture (principal); Y92.9 Unspecified place or not applicable; Y93.9 Activity, unspecified; X58.XXXA Exposure to other specified factors, initial encounter ==

== ENCOUNTER → 2024-03-31 | Outpatient (CLI) | payer BC | LOC: M SOG 07:56 | PROVIDERS: ATTEND Physician Assistant | DX: Z53.9 Procedure and treatment not carried out, unspecified reason (principal) ==

== ENCOUNTER → 2024-05-20 | Outpatient (REF) | payer BC ==
[2024-05-20 17:47] LABS: HEPATITIS B SURFACE ANTIGEN NEGATIVE (NEGATIVE)
[2024-05-20 17:58] LABS: HIV 1&2 SCREEN NEGATIVE (NEGATIVE)
[2024-05-20 18:06] LABS: HEPATITIS B CORE ANTIBODY IGM NEGATIVE (NEGATIVE); HEPATITIS C VIRUS ABY INDEX < 0.02 INDEX (<0.8)
== END ==
LOC: M LAB REF 16:15
PROVIDERS: ATTEND Internal Medicine
DX: Z72.51 High risk heterosexual behavior (principal)